=== PATIENT | male | born 1985 | race Caucasian/White ===

== ENCOUNTER 2023-09-15 09:46 | Outpatient (AMB) | payer OTHER, SELFPAY ==
--- NOTE | 2023-09-15 10:31 | HO.SPINEOV ---
Intake Intake Visit Reasons: Lumbar radiculopathy Assessment & Plan Assessment & Plan (1) Hip pain, left: Code(s): M25.552 - Pain in left hip Plan Dear colleague Thank you for referring Bret Aguilar to the office today with a chief complaint of left hip pain. HPI: This 38-year-old male injured himself approximately 4 years ago. He was on the eyes and turned in his back towards the right side when he felt a jolt on the left side and fell on the ice. It was right before COVID started and therefore he was not evaluated for long time. The symptoms improved but never 2 point where he felt comfortable or pain-free. The pain is located on the left side of his back left hip left groin and can radiate down his left leg but the pain in the back and hip area is constant. He denies numbness or weakness The following conservative treatment options were tried without success antiinflammatories, tylenol, and physical therapy. shots PMH: Hypertension Medications: [] Allergies: NKDA Social history: Smokes 1 pack a day Physical Exam: Pleasant male. Inward and outward rotation of the left hip is painful. Thigh thrust is negative. Straight leg raise is negative. No motor or sensory deficits Radiological Studies: MRI done at [email or web address] on 07/21/2023 shows mild L5-S1 degenerative disc disease without nerve compression Impression/Plan: This 38-year-old male is suffering from pain in the left hip and SI joint region. Differential diagnosis is hip pathology versus SI joint dysfunction. I will refer him to our orthopedic department for evaluation of his left hip. We will refer her for a left SI joint injection if hip pathology is excluded. Thank you for allowing me to participate in your patients care. total time spent was 50 minutes in counseling ,coordination of plan, personal review of imaging, surgical decision making and subsequent plan Carlos Enrique Castaneda MD, PhD [facility] Trained Neurosurgeon Director, [facility] Orders: Referrals Orthopedics Referral M25.552 - Pain in left hip Coding Level of Care Code New Pt Level 4 (32508) Diagnoses Hip pain, left M25.552
== END 2023-09-15 10:50 | disposition home or self-care (01) ==
PROVIDERS: PCP Physician Assistant Medical; Referring Provider Physician Assistant Medical; Visit Provider Neurological Surgery
DX: M25.552 Pain in left hip (principal)
CPT/HCPCS: 99204

== ENCOUNTER → 2023-09-15 09:46 | Outpatient (BNVA) | payer OTHER, SELFPAY | PROVIDERS: PCP Physician Assistant Medical; Visit Provider Neurological Surgery ==

== ENCOUNTER 2023-10-13 05:48 | Outpatient (REF) | payer OTHER, SELFPAY ==
--- NOTE | ~2023-10-13 | XR_ITS ---
EXAMINATION: XR HIP, LEFT CLINICAL INFORMATION: Pain in unspecified hip. COMPARISON: None available. TECHNIQUE: AP view of the pelvis in 2 views of the left hip of the left hip. FINDINGS: Left hip alignment preserved. Mild sclerosis and degenerative changes in the left sacroiliac joint. Mild hypertrophic change at the left hip joint. Left hip joint space is preserved. Bilateral hip joints are symmetric. XR/XR hip LT w PEL1V IMPRESSION: 1. Mild degenerative changes in the left hip. 2. Mild degenerative changes left sacroiliac joint. 3. CT scan should be considered for further evaluation if there is clinical concern for hip fracture.
== END 2023-10-13 05:49 | disposition home or self-care (01) ==
LOC: HO.HOSX 05:48
PROVIDERS: Visit Provider Physician Assistant
DX: M67.952 Unspecified disorder of synovium and tendon, left thigh (principal); M76.892 Other specified enthesopathies of left lower limb, excluding foot
CPT/HCPCS: 73502

== ENCOUNTER 2023-10-13 08:50 | Outpatient (AMB) | payer OTHER, SELFPAY ==
--- NOTE | 2023-10-13 08:58 | MHC.OFFVIS ---
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 He was recently seen by Dr. Castaneda who referred patient to orthopedics. He has tried massage therapy and at home exercises however his discomfort has never improved. Currently he has constant pain that gets worse with prolong sitting, walking and stair use. He has numbness that comes and goes. No relief with Tylenol or ibuprofen. Finds little relief with CBD topical cream. 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 He was recently seen by Dr. Castaneda who referred him to our office. He currently states he has weakness and constant pain in his hip which radiates to the groin. His pain is aggravated with prolonged sitting, walking, and stair use. He also c/o occasional numbness and tingling. He has tried massage therapy and home exercises which did not provide him any relief. He finds no relief with Tylenol or ibuprofen. He finds mild relief with CBD topical cream. 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 Review of Systems Const All systems reviewed & are unremarkable except as noted in HPI and below Physical Exam Vital Signs: BMI result Body Mass Index 25.0 Const General: cooperative, healthy appearing, comfortable, no acute distress, well developed and alert Orientation/consciousness: patient oriented x3 HEENT Head: Yes normal to inspection, Yes normocephalic and Yes atraumatic Eyes General: appearance normal, both eyes and all related structures Resp Effort & Inspection: normal respiratory effort and able to speak in complete sentences Cardio Rate: regular rate Peripheral pulses: Peripheral pulses 2+ throughout GI Palpation (GI): Soft to palpation Skin Lesions: no lesions Rashes: no rashes Neuro General: patient oriented x3 Extrem Other: Left hip: Normal to inspection. Pain with external rotation of the hip along with hip flexion and abduction against resistance. He has pain with SLR against resistance. NVI. Results Reviewed Results Reviewed: Xrays were obtained in the office today and personally reviewed by me of the right hip show subchondral sclerosis of the acetabulum without bony abnormalities. Assessment & Plan Assessment & Plan (1) Tendonitis of left hip flexor: Code(s): M76.892 - Other specified enthesopathies of left lower limb, excluding foot (2) Tendinopathy of gluteus medius: Code(s): M67.959 - Unspecified disorder of synovium and tendon, unspecified thigh Plan An MRI arthrogram of the left hip has been ordered to further evaluate the soft tissues. He was also placed in a course of physical therapy to work on core, glute, and lumbar strengthening exercises. She will see me back once the study is complete. Orders: Orders XR hip LT w PEL1V Today M25.559 - Pain in unspecified hip PT Evaluation and Treatment Today M67.959 - Unspecified disorder of synovium and tendon, unspecified thigh, M76.892 - Other specified enthesopathies of left lower limb, excluding foot MR hip LT w con Today M67.959 - Unspecified disorder of synovium and tendon, unspecified thigh, M76.892 - Other specified enthesopathies of left lower limb, excluding foot, S73.199A - Other sprain of unspecified hip, initial encounter Patient Instructions: Scribed for Danielle Maria PA-C, by Conor Phillips certified medical asst, on 10/13/2023 at 9:00 AM EST. I, Danielle Maria PA-C, have personally reviewed and agree with the information entered by the scribe. Coding Level of Care Code New Pt Level 3 (05740) Diagnoses Tendonitis of left hip flexor M76.892 Tendinopathy of gluteus medius M67.959
[2023-10-13 09:01] VITALS: BMI 25.0
== END 2023-10-13 10:18 | disposition home or self-care (01) ==
PROVIDERS: PCP Physician Assistant Medical; Visit Provider Physician Assistant
DX: M76.892 Other specified enthesopathies of left lower limb, excluding foot (principal); M67.959 Unspecified disorder of synovium and tendon, unspecified thigh
CPT/HCPCS: 99203

== ENCOUNTER 2023-11-17 12:49 | Outpatient (REF) | payer OTHER, SELFPAY ==
--- NOTE | ~2023-11-17 | FL_ITS ---
LEFT HIP ARTHROGRAM, FLUOROSCOPIC GUIDED INDICATIONS: Left hip pain. Intra-articular gadolinium injection is needed prior to MRI. PROCEDURE: Risks and benefits and possible complications were discussed with the patient and the consent form was signed. The patient was placed hip on the fluoroscopy table. The left hip was prepped and draped in normal sterile fashion. 1% buffered lidocaine was used for anesthesia. A 22-gauge spinal needle was used to access the hip joint. Intra-articular position of the needle within the hip joint was verified using 3 cc of Omnipaque 300. A total of 12 mL of gadolinium/saline (1:200) contrast mixture was then injected into the hip joint. The needle was then removed and a Band-Aid was applied to the injection site. The patient tolerated the procedure well and was sent for to MRI. There were no immediate complications. Solitary image of the left hip joint demonstrate its no discernible arthritic changes or focal abnormality. Normal joint space. Normal contour femoral head. No evidence AVN. FL/FL arthrogram hip LT IMPRESSION: Successful instillation of dilute gadolinium into the intra-articular compartment of the left hip. The patient will undergo subsequent MRI. The procedure was performed by Kal Kim PA-C, and directly supervised by Dr. Powell.
--- NOTE | ~2023-11-17 | MR_ITS ---
EXAMINATION: MR HIP WITH CONTRAST, LEFT CLINICAL INFORMATION: Evaluate ligament tear. COMPARISON: Radiographs dated 10/13/2023. TECHNIQUE: MRI of the left hip was performed after the intra-articular administration of a dilute gadolinium-containing solution on a high-field scanner. FINDINGS: LABRUM/CAPSULE: A longitudinal undersurface tear of the anterosuperior acetabular labrum is best seen on image 8/80 of series 10 at the 1 o'clock position. This propagates posteriorly to the 12 o'clock position and may be contiguous with a small tear seen posterosuperiorly at the 10 o'clock position as seen on image 3/8 of series 10. ALPHA ANGLE (at the anterior 3 o'clock position): 38 degrees ACETABULAR DEPTH: Normal. BONES AND ARTICULAR CARTILAGE: A chondral fissure is noted near the posterior superior chondrolabral junction and posterosuperior labral tear, measuring approximately 1 cm AP. Articular cartilage is otherwise relatively well preserved. No marginal osteophytes. MUSCLES AND TENDONS: Muscles and tendons are intact without tears, tendinosis, or tenosynovitis. JOINT FLUID AND BURSAE: No bursitis. No apparent loose bodies within the joint. LIGAMENTUM TERES: Intact. INTRAPELVIC SOFT TISSUES: Unremarkable. MR/MR hip LT w con IMPRESSION: Longitudinal undersurface tear of the superolateral acetabular labrum with a small adjacent chondral fissure. Intact ligamentum teres and joint capsule.
[2023-11-17] MEDS: gadobutroL 2 ML VIAL IVPUSH (14:49)
== END 2023-11-17 12:50 | disposition home or self-care (01) ==
LOC: HO.XRAY 12:49
PROVIDERS: PCP Nurse Practitioner Family; Visit Provider Physician Assistant
DX: M25.552 Pain in left hip (principal); M67.959 Unspecified disorder of synovium and tendon, unspecified thigh; M76.892 Other specified enthesopathies of left lower limb, excluding foot; S73.199A Other sprain of unspecified hip, initial encounter; X58.XXXA Exposure to other specified factors, initial encounter; Y93.9 Activity, unspecified; Y99.9 Unspecified external cause status; Y92.9 Unspecified place or not applicable
CPT/HCPCS: 27093; 73525; 73722; A9585

== ENCOUNTER → 2023-11-17 13:30 | Outpatient (BNV) | payer OTHER, SELFPAY | PROVIDERS: PCP Nurse Practitioner Family; Visit Provider Physician Assistant Surgical | DX: M25.552 Pain in left hip (principal) | CPT/HCPCS: 27093; 73525 ==

== ENCOUNTER 2023-12-23 09:00 | Outpatient (RCR) | payer OTHER, SELFPAY ==
--- NOTE | 2023-11-19 09:37 | MHC.PT.EP ---
[facility] [place] Office [place] [facility] [place] Office [address] [facility] [phone] F: [phone] F: [phone] F: [phone] F: [phone] Physical Therapy Plan of Care Date of Evaluation: 11/17/23 Date of Surgery: Diagnosis: L hip pain Assessment: Pt is a 38yo male who presents with chronic L hip pain, following injury over 4 years ago. Skilled PT indicated to reduce pain, improve hip and core strength, improve body mechanics and normalize gait pattern. Pt is in agreement with POC and is motivated to participate. Frequency and Duration: The patient will be seen 2x/week x 4 weeks Short Term Goals: 1. In 2 weeks, patient will be able to complete assisted mini-squat with proper hip hinge and equal weight bearing on both LE's. 2. In 2 weeks, patient will be I with phase 1 HEP and >50% compliance with HEP. 3. In 2 weeks, patient will be able to flex L hip equal to R LE. Longterm Goals: 1. In 4 weeks, patient will demonstrate adequate glute med strength with ability to complete SLS x 30 seconds. 2. In 4 weeks patient will improve LEFS score >= 10 points indicating reduced pain and improved functional mobility. Treatment Plan: Modalities to reduce pain, spasms and effusion. Manual therapy to restore motion and function. Therapeutic exercise to improve strength and flexibility. Neuromuscular re-education for posture and balance. Therapeutic activities to return to functional activities of daily living. Electronically signed by: Pushpa Matos PT, DPT Please sign and return to therapist. Thank you for your referral.
--- NOTE | 2024-02-16 11:10 | MHC.PT.DC ---
[facility] [place] Office [place] Office [place] Office [address] [phone] F: [phone] F: [phone] F: [phone] F: [phone] Physical Therapy Discharge Report Diagnosis: L hip pain Date of Surgery: Date of Evaluation: 11/17/23 Date of Discharge: 12/23/23 Treatments to Date: 4 Cancellations to Date: No Shows to Date: Discharge Status: Patient Elected to Stop Recommend MD Follow-up Discharge Summary: Pt was referred to PT for chronic L hip pain following ice hockey injury. Pt participated fully in PT, however without any pain reduction noted since SOC, despite improvement of L hip ROM, core/hip strengthening, and pelvic alignment. Pt is seeing ortho f/u, and will have discussion regarding MRI results. Pt will call for additional appointments if the MD recommends continued PT. Pt in agreement, but is I with HEP at this time. Pt did not call to make f/u appointments, will D/C at this time. Thank you for this referral. Electronically signed by: Pushap Matos PT, DPT Please sign and return to therapist. Thank you for your referral.
== END 2024-02-16 11:11 | disposition home or self-care (01) ==
LOC: HO.PT 09:00
PROVIDERS: PCP Physician Assistant Medical; Visit Provider Physician Assistant
DX: M76.892 Other specified enthesopathies of left lower limb, excluding foot (principal); M67.952 Unspecified disorder of synovium and tendon, left thigh
CPT/HCPCS: 97110; 97140; 97162

== ENCOUNTER → 2023-12-23 15:09 | Outpatient (BNVA) | payer OTHER, SELFPAY | PROVIDERS: PCP Nurse Practitioner Family; Visit Provider Physician Assistant ==